=== PATIENT | male | born 1985 | race Two or more races ===

== ENCOUNTER 2017-06-18 21:25 | Emergency (ER) | payer OTHER ==
[~2017-06-18] VITALS: Ht 177.8 cm; Wt 81.6 kg
[2017-06-18] MEDS ORDERED: ACETAMINOPHEN 325 MG TAB PO ONE ×2 (22:30)
== END 2017-06-18 22:15 | disposition home or self-care (01) ==
LOC: EEVIPCON 21:25 → FSED 21:25
DX: K62.5 Hemorrhage of anus and rectum (principal); E78.5 Hyperlipidemia, unspecified; F17.210 Nicotine dependence, cigarettes, uncomplicated
CPT/HCPCS: 85025